=== PATIENT | female | born 1950 | race Caucasian/White ===

== ENCOUNTER → 2017-02-04 16:38 | Outpatient (CLI) | payer MEDICARE, OTHER | END | disposition home or self-care (01) | LOC: D.MAMMO 11:30 | DX: Z12.31 Encounter for screening mammogram for malignant neoplasm of breast (principal) ==

== ENCOUNTER 2017-05-06 10:50 | Observation (INO) | payer MEDICARE, OTHER ==
--- NOTE | ~2017-05-06 | HEMODYNAMI ---
PATIENT:NINA MONAHAN MEDICAL RECORD: [id number] : 46 LOCATION:[facility] D.2117 ADMISSION DATE: 05/06/17 Generatedon:05/07/201710:52 Patient name: NINA MONAHAN Patient #: [id number] SSN: : 1 Date of study: 05/07/2017 Page: Of Hemodynamic Procedure Report Patient Data Patient Demographics Procedure consent was obtained First Name: NINA Gender: Female Last Name: HERO : 1950 Middle Initial: TANYA Age: 66 year(s) Patient #: [id number] Race: Unknown Additional ID: [id number] Contact details Address: [address] [place] [address] State: [place] City: [place] Zip code: [address] Past Medical History Allergies Allergen Reaction Date Comments Reported Other allergy 05/07/2017 CODEINE-PT STATES SHE GET SICK WITH ALL PAIN MEDS Admission Admission Data Admission Date: 05/06/2017 Admission Time: 16:58 Room #: D.2117 Lab Results Lab Result Date: 05/07/2017 Lab Result Time: 0:00 Biochemistry Name Units Result Min Max BUN mg/dl 18 --(---*)-- 7 18 Creatinine mg/dl 0.9 --(-*--)-- 0.6 1.3 CBC Name Units Result Min Max Hemoglobin g/dl 13.9 --(*---)-- 13.5 17.5 Coagulation Name Units Result Min Max PTT sec 162.8 --(----)-* 22.8 39.4 Procedure Procedure Types Cath Procedure Diagnostic Procedure [facility] w/Coronaries Aortic Root Angiography Miscellaneous Procedures Moderate Sedation up to 15 minutes Procedure Description Procedure Date Procedure Date: 05/07/2017 Procedure Start Time: 10:37 Procedure End Time: 10:50 Procedure Staff Name Function Hussain Mancia MD Performing Physician Rossana Luna RT Scrub Sri Weller RN Nurse Juan Vaughn RT Monitor Procedure Data Cath Procedure Fluoroscopy Diagnostic fluoroscopy Total fluoroscopy Time: 2.1 time: 2.1 min min Diagnostic fluoroscopy Total fluoroscopy dose: 246 dose: 246 mGy mGy Contrast Material Contrast Material Type Amount (ml) Isovue 300 108 Entry Location Entry Primary Successful Side Size Upsize Upsize Entry Closure Succes sful Closure Location (Fr) 1 (Fr) 2 (Fr) Remarks Device Remarks Femoral Right 5 Fr Exoseal artery Diagnostic catheters Device Type Used For End Catheter Placement Cordis 5Fr JL 4.0 Left Coronary Catheter (MP) Angiography Cordis 5Fr 3DRC Catheter Right Coronary (MP) Angiography Cordis 5Fr Pigtail LV Angiography Catheter (MP) Procedure Complications No complications Procedure Medications Medication Administration Route Dosage Oxygen NC 2 l/min Heparin Flush Bag added to field 2 bags (1000units/500ml NS) Lidocaine 2% added to field 20 Zofran I.V. 4 mg Versed I.V. 1 mg Fentanyl I.V. 50 mcg Versed I.V. 0.5 mg Fentanyl I.V. 25 mcg Hemodynamics Rest HGB: 13.9 (g/dl) Heart Rate: 67 (bpm) Pressure Samples Time Site Value (mmHg) Purpose Heart Use Rate(bpm) 10:43 LV 135/-11,14 EDP 76 10:44 AO 139/63(93) Pullback 80 10:44 LV 129/-5,19 Pullback 80 Gradients Valve Time Site 1 Site 2 Mean SEP/DFP Peak To Heart Use (mmHg) (sec/min) Peak Rate (mmHg) (bpm) Aortic 10:44 LV AO 0 22 0 80 129/-5,19 139/63(93) Calculations Valve P-P Mean Valve Index Valve Source Name Gradient Area Flow (cm2) Aortic 0 0 0 0 Snapshots Pre Cath Intra NCS Post Cath Vital Signs Time Heart Resp SPO2 etCO2 [id number] NIBP (mmHg) Rhythm Pain Sedation Rate (ipm) (%) (mmHg) (mmHg) Status Level (bpm) 10:13:51 66 32 96 0 0 147/73(125) NSR 0 (11) 10(A) , No pain 10:18:07 61 13 97 0 0 147/76(122) NSR 0 (11) 10(A) , No pain 10:22:19 71 17 98 0 0 129/91(94) NSR 0 (11) 10(A) , No pain 10:27:18 73 18 98 0 0 Measuring NSR 0 (11) 10(A) , No pain 10:27:20 71 18 98 0 0 150/74(113) NSR 0 (11) 10(A) , No pain 10:31:42 68 16 98 0 0 141/76(120) NSR 0 (11) 10(A) , No pain 10:35:59 64 16 95 0 0 120/67(102) NSR 0 (11) 9(A) , No pain 10:40:12 68 16 96 0 0 129/66(94) NSR 0 (11) 9(A) , No pain 10:44:31 78 16 96 0 0 123/65(91) NSR 0 (11) 9(A) , No pain 10:47:55 77 15 95 0 0 123/72(101) NSR 0 (11) 9(A) , No pain Medications Time Medication Route Dose Verified Delivered Reason Notes Effec tiveness by by 10:23:13 Oxygen NC 2 Hussain Sri Per l/min Gavino Weller RN physician 10:23:20 Heparin Flush added 2 Hussain Hussain used for Bag to bags Gavino Mancia MD procedure (1000units/500ml field NS) 10:23:27 Lidocaine 2% added 20ml Hussain Hussain used for to vial Gavino Mancia MD procedure field 10:28:25 Zofran I.V. 4 mg Hussain Sri Per Gavino Weller RN physician 10:32:40 Versed I.V. 1 mg Hussain Sri for Gavino Weller RN sedation 10:32:46 Fentanyl I.V. 50 Hussain Sri for mcg Gavino Weller RN sedation 10:35:21 Versed I.V. 0.5 Hussain Sri for mg Gavino Weller RN sedation 10:35:24 Fentanyl I.V. 25 Hussain Sri for mcg Gavino Weller RN sedation Procedure Log Time Note 10:00:23 Rossana Counts RT(R) sent for patient. Start room use. 10:12:30 Time tracking: Regular hours 10:12:34 Plan of Care:Hemodynamics will remain stable., Cardiac rhythm will remain stable., Comfort level will be maintained., Respiratory function will remain adequate., Patient/ family verbilizes understanding of procedure., Procedure tolerated without complication., Recovers from procedure without complications.. 10:12:40 Patient received from PCU to CCL 1 Alert and oriented. Tansferred to table in Supine position. 10:12:41 Warm blankets applied, and benson hugger turned on for patient comfort. 10:12:42 Correct patient and procedure confirmed by team. 10:12:43 Signed procedure consent form obtained from patient. 10:12:45 ECG and BP/O2 sat monitors applied to patient. 10:12:45 Vital chart was started 10:17:38 Baseline sample Acquired. 10:17:41 Rhythm: sinus rhythm 10:17:42 Full Disclosure recording started 10:22:53 H&P Date Dictated: 05/06/2017 Within 30 days and on chart.. 10:22:56 Pre-procedure instructions explained to patient. 10:22:56 Pre-op teaching completed and patient verbalized understanding. 10:22:58 Family in patients room. 10:23:02 Patient NPO since Midnight. 10:23:13 Oxygen 2 l/min NC was administered by Sri Weller RN; Per physician; 10:23:20 Heparin Flush Bag (1000units/500ml NS) 2 bags added to field was administered by Hussain Mancia MD; used for procedure; 10:23:27 Lidocaine 2% 20ml vial added to field was administered by Hussain Mancia MD; used for procedure; 10:23:32 Patient allergic to Other allergyCODEINE-PT STATES SHE GET SICK WITH ALL PAIN MEDS 10:23:35 Is the patient allergic to Iodine/contrast media? No. 10:23:40 Is patient on blood thinner?No 10:23:44 ACC The patient was administered the following blood thiners within the last 24 hours: ACCHeparin 10:23:47 Patient diabetic? No. 10:23:48 ----Pre-sedation anethsthesia assessment.---- 10:23:50 Previous problem with sedation/anesthesia? No ? 10:23:52 Snore? Yes 10:23:53 Sleep apnea? Yes 10:23:55 Deviated septum? No 10:23:56 Opens mouth fully? Yes 10:23:58 Sticks out tongue? Yes 10:24:00 Airway obstruction? No ? 10:24:02 Dentures? No ? 10:24:18 Pre procedure: right dorsailis pedis pulse 1+ Palpable, but thready & weak; easily obliterated 10:24:24 Modified Uri's test Ulnar < 7 seconds 10:24:27 Patient pain scale 0/10 ?. 10:24:31 IV patent on arrival in left hand with 0.9% NaCl at 10ml/hr. 10:28:25 Zofran 4 mg I.V. was administered by Sri Weller RN; Per physician; 10:30:08 Lab Result : BUN 18 mg/dl 10:: Lab Result : Hemoglobin 13.9 g/dl 10::08 Lab Result : Creatinine 0.9 mg/dl 10::08 Lab Result : PTT 162.8 sec 10:30:16 Lab results completed and on chart. 10:30:23 Lab results completed and on chart, pending. 10:31:53 PTT WAS REDRAWN AND WILL BE RESULTED BEFORE INTERVENTION PROCEDING 10:32:14 Right groin area was prepped with chlora-prep and draped in sterile fashion 10:32:14 Alarms reviewed by R. N. 10:32:15 Sharps counted by scrub and verified by R.N. 10:32:25 --------ALL STOP TIME OUT------ 10:32:26 Final Timeout: patient, procedure, and site verified with staff and physician. All members of the team are in agreement. 10:32:27 Right groin site verified by team. 10:32:30 Physical assessment completed. ASA score P 2 - A patient with mild systemic disease as per Hussain Mancia MD. 10:32:34 Sedation plan: IV Moderate Sedation Versed, Fentanyl 10:32:40 Versed 1 mg I.V. was administered by Sri Weller RN; for sedation; 10:32:46 Fentanyl 50 mcg I.V. was administered by Sri Weller RN; for sedation; 10:33:11 Use device set Femoral Dx 10:33:12 Acist Syringe opened to sterile field. 10:33:13 Bag Decanter opened to sterile field. 10:33:13 Medline Cath Pack opened to sterile field. 10:33:13 Terumo 5Fr Plymouth Sheath opened to sterile field. 10:33:14 St Owen 260cm J .035 wire opened to sterile field. 10:33:15 Acist Hand Control opened to sterile field. 10:33:15 Acist Manifold opened to sterile field. 10:33:15 Diagnostic Infinity 5Fr Multipack catheter opened to sterile field. 10:33:16 Tegaderm 4 x 4 opened to sterile field. 10:35:03 Zero performed for pressure channel P1 10:35:09 Procedure started. 10:35:21 Versed 0.5 mg I.V. was administered by Sri Weller RN; for sedation; 10:35:24 Fentanyl 25 mcg I.V. was administered by Sri Weller RN; for sedation; 10:37:04 Local anesthetic to right femoral artery with Lidocaine 2% by Hussain Mancia MD.INITIAL ACCESS ONLY 10:37:13 A 5 Fr sheath was inserted into the Right Femoral artery 10:37:24 A Cordis 5Fr JL 4.0 Catheter (MP) was advanced over the wire and used for Left Coronary Angiography. 10:37:57 LCA angiography performed. 10:39:02 Catheter removed. 10:39:09 A Cordis 5Fr 3DRC Catheter (MP) was advanced over the wire and used for Right Coronary Angiography. 10:39:13 RCA angiography performed. 10:40:45 Catheter removed. 10:42:19 A Cordis 5Fr Pigtail Catheter (MP) was advanced over the wire and used for LV Angiography. 10:42:56 LV angiography performed. 10:42:57 LV gram done using HURLEY 10:42:59 LV hemodynamics recorded. 10:43:02 Injector settings: Ml/sec: 10, Volume: 20, 10:43:54 EF : 50 % 10:44:24 Aortic Root visualized 10:44:50 Procedure type changed to Cath procedure, Diagnostic procedure, LHC, LHC w/Coronaries, Aortic Root Angiography, Miscellaneous Procedures, Moderate Sedation up to 15 minutes 10:44:58 Catheter removed. 10:45:05 Contrast amount:Isovue 300 108ml. 10:45:11 Sheath removed intact; hemostasis achieved with Exoseal to the Right Femoral artery. 10:45:17 Cordis 5Fr Exoseal opened to sterile field. 10:45:20 Procedure ended.(Physican Out) 10:46:43 Fluoroscopy time 02.10 minutes. 10:46:48 Fluoroscopy dose: 246 mGy 10:46:48 Flurop Dose total: 246 10:49:06 Sharps counted by scrub and verified by R.N. 10:49:07 Insertion/operative site no bleeding no hematoma. 10:49:10 Post-op/insertion site Right Femoral artery dressed using a 4 x 4 and Tegaderm. 10:49:20 Post right femoral artery:stable 10:49:21 Post Procedure Pulses reassessed and unchanged 10:49:23 Post procedure: right dorsailis pedis pulse 1+ Palpable, but thready & weak; easily obliterated. 10:49:26 Post procedure rhythm: sinus rhythm 10:49:27 Post procedure instruction explained to patient.Patient verbalizes understanding. 10:50:16 Procedure and supply charges have been captured, reviewed, submitted and are correct. 10:50:20 Procedure Complication : No complications 10:50:23 Vital chart was stopped 10:50:23 See physician's report for complete and final results. 10:50:28 Report given to PCU. 10:50:31 Patient transfered to PCU with Bed. 10:50:33 Procedure ended. 10:50:33 Full Disclosure recording stopped 10:50:36 End room use (Document Last) Device Usage Item Name Manufacture Quantity Catalog Hospital Part Current Minimal Lo t# / Number Charge Number Stock Stock Serial# Code Acist Acist 1 26040 093961 457565 396735 20 Syringe Medical Systems Inc Bag Microtek 1 2002S 433970 28459 591772 5 Decanter Medical Inc. Medline Cardinal 1 [id number] 527226 93125 647376 5 Cath Pack Health Terumo 5Fr Terumo 1 [id number] 027724 368873 949236 [address] Owen 1 417904 033747 213446 920599 30 260cm J .035 wire Acist Hand Acist 1 72281 374907 637336 862012 5 Control Medical Systems Inc Acist Acist 1 83144 488223 316632 706781 5 Manifold Medical Systems Inc Diagnostic Cardinal 1 [id number] 741016 28570 059604 30 TextureMedia 5Fr Multipack catheter Tegaderm 4 3M 1 1626W 683693 878089 701422 5 x 4 Cordis 5Fr Cardinal 1 [id number] 5 JL 4.0 Health Catheter (MP) Cordis 5Fr Cardinal 1 789617 5 3DRC Health Catheter (MP) Cordis 5Fr Cardinal 1 819618 5 Pigtail Health Catheter (MP) Cordis 5Fr Cardinal 1 EX500 162023 756377 084352 10 [facility] Health Signature Audit [place] Stage Time Signature Unsigned Intra-Procedure 05/07/2017 Juan Vaughn 10:52:41 AM RT(R) Signatures Monitor : Juan Vaughn RT Signature : Date : Time : [id number] [place] [address]
--- NOTE | ~2017-05-06 | OP ---
PATIENT NAME: NINA MONAHAN MEDICAL RECORD: [id number] :46 LOCATION:D.M2 D.2117 ADMISSION DATE:05/06/17 SURGEON: JOSE MARTIN PRICE M.D. DATE OF OPERATION: 05/07/2017 REFERRING PHYSICIAN: Sourav Dubose DO. PROCEDURES PERFORMED: 1. Selective coronary angiography. 2. Left heart catheterization with ventriculogram. 3. Aortic root injection. INDICATION: A 66-year-old woman who presents with symptoms of angina and abnormal cardiac enzymes. EQUIPMENT USED: A 5-Swedish JL4, Miguel right, pigtail catheter. TECHNIQUE: A 5-Swedish sheath was inserted in retrograde fashion in the right common femoral artery. Next, selective coronary angiography was performed in standard views using 5-Swedish JL4 and Miguel right. Left heart catheterization was performed using pigtail catheter. Pigtail catheter was then pulled back in the ascending aorta to visualize the root. CORONARY ANATOMY: 1. Left main: Left main trunk is moderate in caliber. It is a smooth-walled vessel. It is angiographically normal. 2. LAD: This is a large-caliber vessel extending to the apex. It is a smooth-walled vessel and angiographically normal. 3. Circumflex: This vessel is moderate in caliber. It supplies the lateral branch in mid segment. The circumflex and lateral branch are smooth-walled and angiographically normal. 4. Right coronary: This vessel is quite large and dominant. It provides the PDA and distal segment. This vessel is smooth-walled and angiographically normal. 5. Left ventricle: Left ventricle is normal size. No wall motion abnormalities are noted. Estimated ejection fraction is 50%. 6. Ascending aorta. The ascending aorta appears to be normal in caliber. There is no evidence of dissection. There is no evidence of aortic stenosis. There is no evidence of insufficiency. IMPRESSION: 1. Normal coronary arteries. 2. Normal left ventricular function. RECOMMENDATIONS: I suspect the cardiac enzymes are false positive. We will continue with medical management. TRANSINT:[id number] Voice Confirmation ID: [id number] DOCUMENT ID: [id number] OPERATIVE REPORT [id number] NINA MONAHAN JOSE MARTIN PRICE M.D. CC: [id number] DICTATION DATE: 05/07/17 1050 ROUTE SALES PERSON: 05/07/17 1851 DIS IN 05/07/17 [facility] [address] [facility] [place] [address]
[2017-05-06 12:09] LABS: BASOPHILS 0.2 % (0-2); EOSINOPHILS 0.2 % (0-7); HEMATOCRIT 41.8 % (36.0-48.0); HEMOGLOBIN 13.9 g/dL (12-16); IMMATURE GRANULOCYTES 0.2 % (0-5); LYMPHOCYTES 21.2 % (15-50); MCH 28.4 pg (26.0-34.0); MCHC 33.3 g/dL (31.0-37.0); MCV 85.5 fL (80.0-100.0); MEAN PLATELET VOLUME 10.5 fL (7.4-10.4); MONOCYTES 8.5 % (2-11); NEUTROPHILS 69.7 % (40-80); PLATELET COUNT 199 10x3/uL (130-400); RBC 4.89 10x6/uL (4.00-5.40); RDW 12.7 % (11.5-14.5); WBC 5.4 10x3/uL (4.8-10.8)
[2017-05-06 13:12] LABS: ALBUMIN 3.9 g/dL (3.4-5.0); ALKALINE PHOSPHATASE 48 U/L (46-116); ALT (SGPT) 28 U/L (10-68); BILIRUBIN - TOTAL 0.59 mg/dL (0.2-1.3); CALC OSMOLALITY 284 mosm/kg (275-300); CALCIUM 9.4 mg/dL (8.5-10.1); CARBON DIOXIDE 27.2 mmol/L (21.0-32.0); CHLORIDE - SERUM 102 mmol/L (98-107); CREATININE - SERUM 0.9 mg/dL (0.6-1.3); GLUCOSE 141 mg/dL (74-106); PROTEIN - SERUM 7.7 g/dL (6.4-8.2); SODIUM 141 mmol/L (136-145); UREA NITROGEN 18 mg/dL (7-18); eGFR NON AFRICAN AMERICAN 66 mL/min (90-120)
[2017-05-06 13:24] LABS: CHOLESTEROL, TOTAL 160 mg/dL (0-200); CKMB 0.6 U/L (0.0-3.6); CREATINE KINASE 53 UL (21-215); HDL CHOLESTEROL 54 mg/dL (32-96); LDL CHOLESTEROL 91 mg/dL (0-100); LDL-HDL RATIO 1.7 ratio (1.5-3.5); PRO BNP 147 pg/mL (0-125); TRIGLYCERIDE 75 mg/dL (30-200)
[2017-05-06 13:26] LABS: TROPONIN-I 0.017 ng/mL (0.000-0.060)
--- NOTE | 2017-05-06 18:26 | NUR ---
TRANSFER FROM ER BY STRETCHER. OREINTED TO ROOM. CALL LIGHT IN REACH. WILL CONT. PLAN OF CARE.
--- NOTE | 2017-05-06 19:35 | NUR ---
RESUMED CARE OF PT, LYING IN BED RESPIRAITONS EVEN AND UNLABORED ON 2LPM VIA NC. LEFT AC INFUSING HEPARIN @ 10. NO NEEDS VOICED AT THIS TIME, CALL LIGHT IN REACH. SEE NURSE ASSESSMENT. WILL CONTINUE TO MONITOR.
[2017-05-06 20:00] VITALS: BP 147/70
[2017-05-06] MEDS ORDERED: LEXAPRO10 MG PO (23:50)
[2017-05-06] MEDS ORDERED: LISINOPRIL-HCTZ1 TA2 PO (23:50)
[2017-05-06] MEDS ORDERED: FISH OIL 1,0001 CA1 PO (23:51)
[2017-05-07] VITALS: BP 114/63
--- NOTE | 2017-05-07 03:44 | NUR ---
GEOSCIENCES PROFESSOR AT BEDSIDE TO OBTAIN VITALS, CALL LIGHT IN REACH. WILL CONTINUE WITH PLAN OF CARE.
[2017-05-07 04:00] VITALS: BP 129/65
--- NOTE | 2017-05-07 07:42 | NUR ---
ASSESSMENT COMPLETED. 02 AT 2 L/M PER NC. HEPARIN DRIP AT 7 INFUSING INTO THE LEFT AC NPO FOR CATH. CALL LIGHT IN REACH WITH SR UP
[2017-05-07 07:55] VITALS: BP 139/71
--- NOTE | 2017-05-07 09:29 | NUR ---
PRE OP ED AND READY FOR SIZE MARKER
--- NOTE | 2017-05-07 10:07 | NUR ---
AWAKE WAITING ON CATH. FAMILY AT BEDSIDE. MONITOR SHOWS SR @ 62.
[2017-05-07 10:52] LABS: INR 1.02 (0.85-1.17); PROTIME 13.3 SECONDS (11.6-15.0)
[2017-05-07 10:54] LABS: APTT 41.8 SECONDS (22.8-39.4)
--- NOTE | 2017-05-07 11:10 | NUR ---
BACK FROM INSTALLATION AND SERVICE TECHNICIAN. V/S STABLE. DRSG TO RIGHT GROIN DRY AND INTACT. PPP. SR UP WITH CALL LIGHT IN REACH. FAMILY AT BEDSIDE. WILL MONITOR
--- NOTE | 2017-05-07 12:38 | NUR ---
LYING QUIETLY. RIGHT GROIN SOFT WITH DRSG DRY AND INTACT. PPP . V/S STABLE
--- NOTE | 2017-05-07 13:18 | NUR ---
Patient Name: NINA MONAHAN Admission Status: ER Accout number: [id number] Admission Date: 05-06-2017 : 1950 Admission Diagnosis: Attending: SHI Current LOS: 1 Anticipated DC Date: 05-07-2017 Planned Disposition: Home Primary Insurance: MEDICARE A & B Discharge Planning Comments: * Is the patient Alert and Oriented? Yes 0 * How many steps to enter\exit or inside your home? 3 0 * PCP DR. CUI 0 * Pharmacy [facility] 0 * Preadmission Environment Home with Family 0 * ADLs Independent 0 * Equipment CPAP 0 * Other Equipment [facility] - MEDICAL EQUIPMENT PROVIDER PREFERENCE 0 * List name and contact numbers for known caregivers / representatives who currently or will assist patient after discharge: PATRICE MONAHAN, SPOUSE, 0 * Community resources currently utilized None 0 * Please name any agencies selected above. NONE 0 * Additional services required to return to the preadmission environment? No 0 * Can the patient safely return to the preadmission environment? Yes 0 * Has this patient been hospitalized within the prior 30 days at any hospital? No 0 CM MET WITH PT AND SPOUSE IN ROOM TO DISCUSS DISCHARGE PLANNING AND NEEDS. PT REPORTS LIVING AT HOME INDEPENDENTLY WITH SPOUSE. PT HAS CPAP, PROVIDER IS [employer]. PT HAS NO OUTSIDE SERVICES ASSISTING IN THE HOME. CM DISCUSSED AVAILABILITY OF HOME HEALTH, REHAB SERVICES AND MEDICAL EQUIPMENT. PT DENIES DISCHARGE NEEDS, REPORTS HER SP0USE IS HERE TO PICK HER UP FOR DISCHARGE HOME. PT'S SPOUSE REPORTS THAT PT HAD A CLEAN CATH BUT IS STILL HAVING PAIN AND WOULD LIKE DR. CUI, PT'S PRIMARY CARE DOCTOR, TO ADDRESS THE PAIN ISSUE. PT WOULD LIKE ANY MEDICATIONS CALLED IN TO [email or web address] [place] [facility]. CM NOTIFIED TREE PRUNER NURSE. Log Manager: Theodore Hooper
--- NOTE | 2017-05-07 14:13 | NUR ---
SMALL SPOT OF BLOOD FOND ON RIGHT GROIN DRSG. PRESSURE HELD
--- NOTE | 2017-05-07 18:03 | NUR ---
SITTING UP TALKIN WITH FAMILY. RIGHT GROIN SOFT WITH SMALL SPOT OF BLOOD TO DRSG. PPP. DENIES ANY NEEDS. CALL LIGHT IN REACH WITH SR UP
--- NOTE | 2017-05-07 18:43 | NUR ---
DR IRWIN CAME TO SEE PT AND PATIENT DECIED TO GO HOME AND FOLLOW UP WITH DR. CUI. RX FOR MUSCLE RELAXER. PT IS TO CALL DR IRWIN IF SHE HAS ANY PAIN BEFORE DR CUI GETS BACK
--- NOTE | 2017-05-07 19:39 | NUR ---
LEFT AC REMOVED WITH TIP INTACT. OFF TELEMETRY. WHEELED OUT IN WHEELCHAIR.
== END 2017-05-07 19:39 | disposition home or self-care (01) ==
LOC: D.ER 10:50 → OBSVTIME 16:58 → D.M2 16:58
PROVIDERS: Emergency Medicine; ADMIT Internal Medicine Cardiovascular Disease
DX: R07.89 Other chest pain (principal); I10 Essential (primary) hypertension

== ENCOUNTER → 2018-02-17 23:48 | Outpatient (CLI) | payer MEDICARE, OTHER ==
[~2018-02-17 23:48] MED LIST: FISH OIL 1,0001 CA1 PO; LEXAPRO10 MG PO; LISINOPRIL-HCTZ1 TA2 PO
== END | disposition home or self-care (01) ==
LOC: D.MAMMO 11:15
DX: Z12.31 Encounter for screening mammogram for malignant neoplasm of breast (principal)

== ENCOUNTER → 2019-03-18 23:26 | Outpatient (CLI) | payer MEDICARE, OTHER | END | disposition home or self-care (01) | LOC: D.MAMMO 03-09 11:30 | PROVIDERS: ATTEND Family Medicine | DX: Z12.31 Encounter for screening mammogram for malignant neoplasm of breast (principal) ==

== ENCOUNTER → 2021-03-13 15:48 | Outpatient (CLI) | payer OTHER | END | disposition home or self-care (01) | LOC: D.MAMMO 09:15 | PROVIDERS: ATTEND Family Medicine | DX: Z12.31 Encounter for screening mammogram for malignant neoplasm of breast (principal) ==